=== PATIENT | female | born 1965 | race Caucasian/White ===

== ENCOUNTER 2019-05-09 20:59 | Emergency (ER) | payer BC ==
[~2019-05-09] VITALS: Ht 149.9 cm; Wt 77.1 kg
[2019-05-09 21:24] VITALS: BP 130/100
[2019-05-09 21:33] VITALS: BP 142/83
--- NOTE | 2019-05-09 21:33 | NUR ---
AMB TO BED 02 WITH STEADY GAIT
--- NOTE | 2019-05-09 21:33 | NUR ---
54/F BIB DAUGHTER WITH C/O HEADACHE SINCE 5PM TODAY. PT HAS HX OF MIGRAINE WITHOUT N/V BUT STATES THE HEADACHE TODAY IS DIFFERENT AREA (FRONTAL) AND WITH N/V. DENIES VISION CHANGES OR DIZZINESS. STATES FATIGUE. PAIN IS AN 8/10. PERRLA +3; FOLLOWS COMMANDS. ERMD MADE AWARE OF STATUS. SIDE RAILSX1. PLACED ON MONITOR. DAUGHTER AT BEDSIDE. WILL CONTINUE TO MONITOR. BP ELEVATED 130/100 HX- MIGRAINE, HTN, HYPERCHOL ALL- SHRIMP RX:DENIES
--- NOTE | 2019-05-09 21:33 | NUR ---
Patient discharged with v/s stable. Written and verbal after care instructions given and explained. Patient alert, oriented and verbalized understanding of instructions. Ambulatory with steady gait. All questions addressed prior to discharge. ID band removed. Patient advised to follow up with PMD. Rx of MOTIN AND TRAMADOL given. Patient educated on indication of medication including possible reaction and side effects. Opportunity to ask questions provided and answered.
[2019-05-09] MEDS ORDERED: PROCHLORPERAZINE 10 MG/2 ML VIAL IM ONE (22:00)
[2019-05-09] MEDS ORDERED: diphenhydrAMINE 50 MG/ML VIAL IM ONE (22:00)
[2019-05-09] MEDS ORDERED: KETOROLAC 30 MG/ML VIAL IM ONE (22:00)
== END 2019-05-09 22:46 | disposition home or self-care (01) ==
LOC: MED 20:59
DX: R51 Headache (principal); I10 Essential (primary) hypertension; R11.0 Nausea; E78.00 Pure hypercholesterolemia, unspecified
CPT/HCPCS: 96372; 99283; J0780; J1200; J1885